=== PATIENT | female | born 2005 ===

== ENCOUNTER 2024-05-06 12:11 | Emergency (ER) | payer BC, SELFPAY ==
--- NOTE | ~2024-05-06 | CT_ITS ---
EXAMINATION: CT HEAD WITHOUT CONTRAST CLINICAL INFORMATION: Head trauma, headache COMPARISON: None available. TECHNIQUE: Contiguous axial imaging was performed from the skull base to vertex without intravenous administration of contrast. This CT examination was performed using dose optimization techniques as appropriate, variously including the following: *Automated exposure control *Adjustment of mA and/or kV according to patient size (this includes techniques or standardized protocols for targeted exams where dose is matched to indication/reason for exam; i.e. extremities or head) *Use of iterative reconstruction technique DLP: 696 mGy-cm FINDINGS: No intra-axial or extra-axial hemorrhage. No acute territorial infarct. Ventricles and sulci appear normal. Preservation of noel-white matter differentiation. No mass, mass effect, or midline shift. No fracture. The mastoid air cells and visualized paranasal sinuses are clear. CT/CT head/brain wo IV con IMPRESSION: No acute intracranial pathology. Electronically signed by: Moises Kang MD 05/06/2024 04:40 PM [facility]
[2024-05-06 12:44] VITALS: BP 128/84; PULSE 101; O2SAT 99
[2024-05-06 12:46] VITALS: BP 146/88; PULSE 95; RESP 20; TEMP 36.3; O2SAT 99; BMI 46.9
--- NOTE | 2024-05-06 12:46 | ED_ITS ---
HPI - Head Injury General Chief complaint: Head Injury Stated complaint: STRUCK HEAD ON POLE @WORK,FEELS OUT OF IT & SHAKEY Time Seen by Provider: 05/06/24 16:20 Source: patient and RN notes reviewed Mode of arrival: ambulatory Limitations: no limitations History of Present Illness ED Provider: Chasity Leonardo PA-C HPI Narrative: This is a 19-year-old female, with a history of migraines, who presents emergency department with complaints of head injury which occurred while at work today. Patient states that she was bending down, and stood up, ultimately striking her left posterior head on a metal pole. She denies loss of consciousness. She states that since the injury which around 11:00 a.m., she has had worsening headache. She also reports that she is feeling tired. She denies any changes in vision, dizziness, chest pain, shortness of breath, abdominal pain, nausea, vomiting or diarrhea. She denies taking any medications prior to arrival. She states that her pain is primarily in the front of her head. She is not on anticoagulation. No other complaints or concerns at this MD Complaint: head injury and head pain Onset (ago): day(s) Place: home Loss of Consciousness: no Location of injury: occipital Severity: moderate Quality: aching Radiation: none Other Injuries: none Associated symptoms: denies other symptoms Related Data Allergies Allergy/AdvReac Type Severity Reaction Status Date / Time No Known Allergies Allergy Verified 05/06/24 12:48 Review of Systems Review of Systems: Yes all other systems are reviewed and are negative Constitutional: Constitutional: Reports as per [facility] Social History Social History Advance Directives: No Advance Directives Information Provided: Yes Do you have a plan to hurt others: No Plan Physical Exam Vital Signs: Vital Signs: Last Vital Signs Temp 97.4 F 05/06/24 12:46 Pulse 95 05/06/24 12:46 Resp 20 05/06/24 12:46 BP 146/88 H 05/06/24 12:46 Pulse Ox 99 05/06/24 12:46 O2 Del Method Room Air 05/06/24 12:46 BMI result Body Mass Index 46.9 Const: General: cooperative, comfortable and no acute distress Orientation/consciousness: patient oriented x3 Limitations: no limitations HEENT: Other: No tenderness palpation along the left occiput Head: Yes normal to inspection, Yes normocephalic, Yes atraumatic, No Del Valle's sign, No hematoma, No occipital foramen tenderness and No palpable skull fracture Ears: hearing grossly normal bilaterally and TM's normal bilaterally (No hemotympanum) General nose exam: Normal external nose present Face and sinus: Yes normal facial exam Mouth: Normal oral and palatal mucosa present, oropharynx normal and moist mucous membranes Throat: Yes posterior oropharynx normal Eyes: General: appearance normal, both eyes and all related structures Eyelids: Yes eyelids normal Conjunctivae: conjunctivae normal Sclerae: sclerae normal Pupils: Equal, round and reactive pupils present EOM: EOMs intact bilaterally Neck: Other: No midline spine tenderness on examination. Neck: Yes normal visual inspection, Yes full ROM and Yes no lymphadenopathy Lymphatic: no lymphadenopathy noted Chest: Chest palpation & inspection: normal inspection of the chest Resp: Effort & Inspection: normal respiratory effort and able to speak in complete sentences Auscultation: clear to auscultation bilaterally, no crackles, no rales, no rhonchi and no wheezes Cardio: Rate: regular rate Rhythm: regular rhythm Heart sounds: S1 normal heart sound present and S2 normal heart sound present GI: Inspection: Yes normal to inspection Skin: General skin exam: no rashes or lesions noted Trauma: no lacerations or abrasions Wounds: no wounds Neuro: General: patient oriented x3 and moves all extremities Cranial nerves: Yes CN's II-XII intact bilaterally and Yes Equal, round and reactive pupils present Cognition (Neuro): normal cognition Gait exam (Neuro): Normal gait present Motor exam (neuro): 5/5 motor strength present throughout and Pronator motor function not present Sensory Exam: Normal double simultaneous stimulation for sensation Coordination: xoostq-iq-psmi test normal and oimr-py-wdsp test normal Romberg Test: Negative Extrem: General: Yes normal to inspection Right upper extremity: normal to inspection Left upper extremity: normal to inspection Right lower extremity: normal to inspection Left lower extremity: normal to inspection Course Course Course Narrative: This is a Rapid Medical Examination (RME) performed by Melissa Ortiz PA-C in triage. Full HPI, ROS, assessment and treatment plan per primary provider in the Main ED. 19 yo female presents to the ER via EMS for evaluation of a head injury sustained at work at 11:35 am today. she hit her head on a metal beam when standing up. no loc. no neck pain. reports feeling shakey, nausea, having a hard time staying awake since the injury. not on anticoagulation. c/o dizziness. Plan: CT head Medical Decision Making Medical Decision Making MDM Narrative: This is a 19-year-old female who presents emergency department with complaints of head trauma. On arrival, vital signs within normal limits. She is speaking in full sentences under no acute distress. No neurologic focal deficits on examination. No LOC after head strike. She reports headache, slight nausea. CT head was performed, with no acute abnormality seen. Discussed findings with patient. Workup consistent with closed head injury causing her to have the symptoms. Given normal neurologic examination, patient stable for discharge with strict return precautions. She was medicated with Tylenol. Patient understands and agrees with plan. Patient stable for discharge. Differential Diagnosis Differential Diagnoses: The differential diagnosis associated with the presentation includes ICH, SDH, closed head injury, concussion Radiology Impression Discussion of test interpretation with radiology: I have reviewed the radiologist's reading. Radiologist Impression: FINDINGS: No intra-axial or extra-axial hemorrhage. No acute territorial infarct. Ventricles and sulci appear normal. Preservation of noel-white matter differentiation. No mass, mass effect, or midline shift. No fracture. The mastoid air cells and visualized paranasal sinuses are clear. CT/CT head/brain wo IV con IMPRESSION: No acute intracranial pathology. Electronically signed by: Moises Kang MD 05/06/2024 04:40 PM [facility] [place], [place] Dictated By: Moises Kang MD Discharge Plan Discharge Clinical Impression: Closed head injury Patient Disposition: Home, Self-Care Instructions: Head Injury (ED) Additional Instructions: You were seen in the emergency department after hitting your head. Your CT scan does not show any new injury. You likely have a concussion. Please drink plenty of fluids get plenty of rest. Mental and physical rest can help alleviate your symptoms sooner. Alternate between Motrin as needed for pain. Any new or worsening symptoms occur including but not limited to worsening headache, dizziness, blurred vision, vomiting, chest pain, shortness of breath, please seek emergent care. Follow-up with your primary care physician regarding this visit. Stand Alone Forms: Work/School Release Print Language: Irish
[2024-05-06 17:16] VITALS: BP 135/69; PULSE 86; RESP 16; TEMP 36.6; O2SAT 97
[2024-05-06] MEDS: Acetaminophen 325 MG TABLET 975 MG PO (18:17)
[2024-05-06 18:19] VITALS: BP 135/69; PULSE 86; RESP 16; TEMP 36.6; O2SAT 97
--- OUTSIDE RECORDS SUMMARY | 2024-05-12 18:22 | XMS_ITS | Clinical Summary ---
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 Allergies, Adverse Reactions, Alerts Observed no known allergies at Results Date Name Value Unit Range Flag Description Replaced Document: (P) RAPID BETA STREP SCREEN STREP SCREEN NEGATIVE FOR GROUP A BETA STREP - CULTURE TO FOLLOW Streptococcus py ogenes [Presence] in Throat by Organism specific culture Plan of Care Type Date Detail Pending order Patient encounte r procedure Pending order Patient encounte r procedure Procedures No information available. Vital Signs No information available. Immunizations No information available. Advance Directives No information available.
== END 2024-05-06 18:19 | disposition home or self-care (01) ==
PROVIDERS: Emergency Provider Emergency Medicine
DX: S09.90XA Unspecified injury of head, initial encounter (principal); W22.09XA Striking against other stationary object, initial encounter; Y93.9 Activity, unspecified; Y92.214 College as the place of occurrence of the external cause; Y99.0 Civilian activity done for income or pay
CPT/HCPCS: 70450; 99283; 99284